=== PATIENT | male | born 1995 | race Caucasian/White ===

== ENCOUNTER 2016-11-13 21:50 | Emergency (ER) | payer BC, OTHER ==
[2016-11-13 22:00] VITALS: BP 149/74
[2016-11-13] MEDS ORDERED: DOXYcycline CAP(*) 100 MG PO ONE (22:31)
--- NOTE | 2016-11-13 22:31 | UC ---
Jackson Butcher Benjamin, scribed for Shereen Ko MD on 11/13/16 at 2214 . Skin Complaint HPI - HPI Summary HPI Summary: 21yo male reports black spot on his right buttock that pt found yesterday. Pt noticed some pus from the area. Pt states has increased size and discomfort today. no fever, chills. Pt states concerned is related to tick, but no known tick bite. no fevers, chills. no h/o similar. 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 Reviewed pts medication and allergy lists. - History of Current Complaint Chief Complaint: UCSkin Stated Complaint: TICK Hx Obtained From: Patient Onset/Duration: Lasting Days - noticed it yesterday, Still Present Skin Exposure Onset/Duration: Days Ago - few days Timing: Constant Current Severity: None Pain Intensity: 0 Pain Scale Used: 0-10 Numeric Location: Discrete, Other - right buttock Character: Swelling, Pain, Redness, Painful Aggravating: Touch Alleviating: Other - warm soaks Associated Signs & Symptoms: Positive: Negative - Allergy/Home Medications Allergies/Adverse Reactions: Allergies Allergy/AdvReac Type Severity Reaction Status Date / Time No Known Allergies Allergy Verified 10/29/14 06:15 Review of Systems Constitutional: Negative Skin: Other - black tick bite like spot on right buttock Eyes: Negative ENT: Negative Respiratory: Negative Cardiovascular: Negative Gastrointestinal: Negative Genitourinary: Negative Motor: Negative Neurovascular: Negative Musculoskeletal: Negative Neurological: Negative Psychological: Negative All Other Systems Reviewed And Are Negative: Yes PMH/Surg Hx/FS Hx/Imm Hx Previously Healthy: Yes Neurological History: Other Other Neurological History: Tourett's syndrome Psychological History: Other Other Psychological History: ADD - Surgical History Surgical History: Yes Surgery Procedure, Year, and Place: EAR TUBES A [id number]. LACERATION OF FINGER-AGE 9- [facility]- LOC[facility] - Family History Known Family History: Negative: Cardiac Disease, Hypertension, Diabetes - Social History Occupation: Student Lives: With Family Alcohol Use: None Substance Use Type: None Smoking Status (MU): Never Smoked Tobacco Have You Smoked in the Last Year: No - Immunization History Most Recent Influenza Vaccination: 2012 Most Recent Tetanus Shot: not sure Vaccination Up to Date: Yes Physical Exam Triage Information Reviewed: Yes Appearance: Well-Appearing, No Pain Distress, Well-Nourished Vital Signs: Initial Vital Signs Temp 98 F 11/13/16 21:54 Pulse 76 11/13/16 21:54 Resp 16 11/13/16 21:54 BP 149/74 11/13/16 21:54 Pulse Ox 100 11/13/16 21:54 Eye Exam: Normal Eyes: Positive: Conjunctiva Clear ENT Exam: Normal ENT: Positive: Hearing grossly normal Dental Exam: Normal Neck exam: Normal Neck: Positive: Supple, Nontender Respiratory Exam: Normal Respiratory: Positive: Chest non-tender, Lungs clear, Normal breath sounds, No respiratory distress, No accessory muscle use Cardiovascular Exam: Normal Cardiovascular: Positive: RRR, No Murmur, Pulses Normal Abdominal Exam: Normal Abdomen Description: Positive: Nontender, No Organomegaly, Soft Musculoskeletal Exam: Normal Neurological Exam: Normal Psychological Exam: Normal Skin Exam: Normal Skin: Positive: Other - Right buttock - pt with 3x3 cm area of erythema with central are with aparent infected follicle with scant purulent discharge no fluctance mild induration Course/Dx - Course Course Of Treatment: Blood pressure noted and patient informed to follow up with PCP. Pt with apparent inflammed follicle with surrounding cellulitis. minimal drainage. tetanus UTD. wound demarcated by me. recommend warm soaks. return precautions - Diagnoses Provider Diagnoses: cellulitis, folliculitis Discharge - Discharge Plan Condition: Stable Disposition: HOME Prescriptions: DOXYcycline CAP(*) [DOXYcycline 100MG CAP(*)] 100 mg PO BID #20 cap Patient Education Materials: Cellulitis (ED), Folliculitis (ED) Referrals: Marshall Matt MD [Primary Care Provider] - Additional Instructions: - Okay to alternate ibuprofen (Advil, Motrin) and tylenol every 3 hours for pain. Take with food - Take antibiotics as prescribed until gone - Apply warm, wet soaks to your wound, 20 minutes at a time, 2-3 times a day - Monitor your wound closely for signs of infection - if you develop increased reddness, red streaking, odor, fever or ANY Other concerns return here, go to your doctor, or the emergency department. It is normal for the reddness to increase over the next 24 hours, but then it should start to shrink The documentation as recorded by the Jackson olivarez Benjamin accurately reflects the service I personally performed and the decisions made by me, Shereen Ko MD.
== END 2016-11-13 22:40 | disposition home or self-care (01) ==
LOC: UCEAST 21:50
DX: L03.90 Cellulitis, unspecified (principal); L73.9 Follicular disorder, unspecified; F95.2 Tourette's disorder; F98.8 Other specified behavioral and emotional disorders with onset usually occurring in childhood and adolescence
CPT/HCPCS: 99212; A9270-GY; G0463